=== PATIENT | male | born 1975 | race Caucasian/White ===

== ENCOUNTER 2017-01-03 12:01 | Emergency (ER) | payer BC, OTHER ==
[~2017-01-03] VITALS: Ht 193 cm; Wt 123.8 kg
--- OUTSIDE RECORDS SUMMARY | 2017-01-03 12:07 | XMS REPORT ---
Author Author HERNAN STUBBS Organization [facility] Address [address] [place] [address] Care Team Providers Care Book Coverer Name Role Phone HERNAN STUBBS Unavailable PROBLEMS Type Condition ICD9-CM Code [id number] Code Onset Dates Condition Status SNOMED Code Problem Acute midline low back pain with left-sided sciatica M54.42 Active 917740180 Problem Myalgia M79.1 Active 88129640 Problem Elevated CK R74.8 Active 001743638 Problem Polydipsia R63.1 Active 71751498 Problem Family history of diabetes mellitus Z83.3 Active 577362587 ALLERGIES Substance Reaction Event Type Date Status Garlic Unknown Non Drug Allergy June, Active SOCIAL HISTORY Never Assessed PLAN OF CARE Activity Details Follow Up prn Reason: VITAL SIGNS Height 76 in 2016-07-07 Weight 224.2 lbs 2016-07-07 Temperature 97.4 degrees Fahrenheit 2016-07-07 Heart Rate 88 bpm 2016-07-07 Respiratory Rate 22 2016-07-07 BMI 27.29 kg/m2 2016-07-07 Blood pressure systolic 140 mmHg 2016-07-07 Blood pressure diastolic 90 mmHg 2016-07-07 MEDICATIONS Medication Instructions Dosage Frequency Start Date End Date Duration Status Tramadol HCl 50 MG Orally every 6 hrs 1 tablet as needed 6h June, June, 5 days Active Cyclobenzaprine HCl 10 MG Orally Three times a day 1 tablet as needed 8h June, June, 7 days Active PredniSONE 20 MG Orally 3 tablets x 3 days, followed by 2 tablets x 3 days, followed by 1 tablet x 3 days. as directed June, June, 9 days Active Ibuprofen 200 MG Orally every 6 hrs 1 tablet as needed 6h Active RESULTS No Results PROCEDURES No Known procedures IMMUNIZATIONS No Known Immunizations MEDICAL (GENERAL) HISTORY Type Description Date Medical History bipolar disorder Medical History PTSD
--- OUTSIDE RECORDS SUMMARY | 2017-01-03 12:07 | XMS REPORT ---
Author Author STEPH GARCIA Organization [employer] Address Unknown Phone Unavailable Care Team Providers Care Transportation Security Officer Name Role Phone STEPH GARCIA CP Unavailable Allergies No Known Allergies Problems Problem Type Condition Code Onset Dates Condition Status Problem Family history of diabetes mellitus Z83.3 Active Problem Myalgia M79.1 Active Problem Polydipsia R63.1 Active Assessment Elevated CK R74.8 Active Problem Elevated CK R74.8 Active Assessment Myalgia M79.1 Active Medications No Known Medications Results No Known Results Summary Purpose [employer] Submission
--- NOTE | 2017-01-03 12:18 | ED Cough/URI ---
General Chief Complaint: Cough/Cold/Flu Symptoms Stated Complaint: CONGESTION,COUGH,N/V Source: patient Exam Limitations: no limitations History of Present Illness Time seen by provider: 12:16 Initial Comments To ER with a six-day history of productive cough of greenish yellow and occasionally blood-tinged sputum, posttussive emesis, fever up to 102, sore throat, rhinorrhea. Timing/Duration: week Severity/Quality: productive cough Associated Symptoms: cough, fever/chills, sinus infection Constitutional: see HPI, chills, fever EENTM: see HPI, nose congestion, throat pain Respiratory: see HPI, cough Cardiovascular: no symptoms reported Gastrointestinal: No abdominal pain, No diarrhea, vomiting Genitourinary: no symptoms reported Musculoskeletal: no symptoms reported Skin: no symptoms reported Psychiatric/Neurological: No Symptoms Reported Hematologic/Lymphatic: No Symptoms Reported Past Ombjlzs-Jazkyl-Qrsguo Hx Patient Social History Recent Foreign Travel: No Contact w/Someone Who Travel: No Physical Exam Vital Signs Vital Sign - Last 12Hours 01/03/17 12:16 Temp 98.6 Pulse 102 Resp 16 B/P (MAP) 136/96 Pulse Ox 94 Capillary Refill : General Appearance: WD/WN, no apparent distress Eyes: Bilateral Eye Normal Inspection, Bilateral Eye PERRL, Bilateral Eye EOMI HEENT: PERRL/EOMI, normal ENT inspection, TMs normal, pharyngeal erythema Neck: non-tender, full range of motion Respiratory: normal breath sounds, no respiratory distress, no accessory muscle use Cardiovascular: regular rate, rhythm, no murmur Gastrointestinal: normal bowel sounds, non tender, soft Extremities: normal range of motion, non-tender Neurologic/Psychiatric: alert, normal mood/affect, oriented x 3 Skin: normal color, warm/dry Progress/Results/Core Measures Suspected Sepsis SIRS Temperature: Pulse: Respiratory Rate: Blood Pressure / Mean: Results/Orders Micro Results Microbiology 01/03/17 Influenza Types A,B Antigen (KAYLEE) - Final, Complete My Orders Orders - DEBBIE KIM APRN Influenza A And B Antigens (01/03/17 12:16) Chest Pa/Lat (2 View) (01/03/17 12:16) Vital Signs/I&O Vital Sign - Last 12Hours 01/03/17 12:16 Temp 98.6 Pulse 102 Resp 16 B/P (MAP) 136/96 Pulse Ox 94 Capillary Refill : Departure Impression Impression: Primary Impression: Bronchitis Disposition: 01 HOME, SELF-CARE Condition: Stable Departure-Patient Inst. Decision time for Depature: 12:50 Referrals: NO,LOCAL PHYSICIAN (PCP/Family) Primary Care Physician Patient Instructions: Acute Bronchitis, Adult (DC) Add. Discharge Instructions: 1. Return to ER for any concerns 2. Follow-up with your doctor next week 3. All discharge instructions reviewed with patient and/or family. Voiced understanding. Scripts Promethazine HCl/Codeine (Prometh-Codein 6.25-10 mg/5 ml) 5 Ml Syrup 5-10 ML PO Q6H Y for COUGH, #120 ML Prov: DEBBIE KIM APRN 01/03/17 Azithromycin (Azithromycin) 250 Mg Tablet 250 MG PO UD, #6 TAB TAKE 2 TABLETS ON DAY ONE THEN TAKE 1 TABLET DAILY FOR FOUR MORE DAYS Prov: DEBBIE KIM APRN 01/03/17 Prednisone (Prednisone) 20 Mg Tab 40 MG PO DAILY, #6 TAB Prov: DEBBIE KIM APRN 01/03/17 Work/School Note: Work Release Form Date Seen in the Emergency Department: Jan 03, 2017 Return to Work: Jan 05, 2017 DEBBIE KIM APRN Jan 03, 2017 12:17
[2017-01-03] MEDS ORDERED: PRD20T PO (12:51)
[2017-01-03] MEDS ORDERED: AZIT250T12 PO (12:51)
[2017-01-03] MEDS ORDERED: PROM5SYR PO (12:51)
--- NOTE | 2017-01-03 12:52 | Diagnostic Imaging Report ---
PA and lateral views of the chest Indication: Cough Findings: The lungs are clear. The heart size is normal. There is no effusion or pneumothorax The mediastinum and shasha appear unremarkable. Impression: Unremarkable study. Dictated by: Dictated on workstation # [id number]
[2017-01-03 12:53] VITALS: BP 136/96
== END 2017-01-03 12:53 | disposition home or self-care (01) ==
LOC: ER 12:03
DX: J40 Bronchitis, not specified as acute or chronic (principal)
CPT/HCPCS: 71020; 87804; 99282

== ENCOUNTER → 2017-01-21 | Outpatient (CLI) | payer BC ==
[~2017-01-21] MED LIST: AZIT250T12 PO; PRD20T PO; PROM5SYR PO
--- NOTE | 2017-01-21 20:08 | Diagnostic Imaging Report ---
EXAMINATION: Three views of the thoracic spine. INDICATION: Back pain. FINDINGS: There is satisfactory alignment of the posterior spinal line. The vertebral body heights are preserved. Disc heights are also preserved. The paraspinal soft tissues appear unremarkable. IMPRESSION: Unremarkable exam. Dictated by: Dictated on workstation # [id number]
--- NOTE | 2017-01-21 20:18 | Diagnostic Imaging Report ---
EXAMINATION: Three views of the lumbar spine. INDICATION: Back pain. FINDINGS: There is satisfactory alignment of the lumbar spine. The vertebral body heights are preserved. Disc heights are also preserved. Minimal anterior osteophytes at the L4/5 level is seen. There is a transitional lumbosacral junction with partially lumbarized right transverse process of S1. The SI joints appear unremarkable. IMPRESSION: Minimal degenerative changes. Dictated by: Dictated on workstation # [id number]
== END ==
LOC: RAD 15:49
PROVIDERS: ATTEND Nurse Practitioner Family
DX: M54.9 Dorsalgia, unspecified (principal)
CPT/HCPCS: 72072; 72100

== ENCOUNTER 2017-05-07 02:34 | Emergency (ER) | payer SELFPAY ==
[~2017-05-07] VITALS: Ht 190.5 cm; Wt 129.3 kg
--- OUTSIDE RECORDS SUMMARY | 2017-05-07 02:45 | XMS REPORT ---
Author Author HERNAN STUBBS Organization [facility] Address [address] [place] [address] Care Team Providers Care Silver Brazer Name Role Phone HERNAN STUBBS Unavailable PROBLEMS Type Condition ICD9-CM Code RDQ88-IQ Code Onset Dates Condition Status SNOMED Code Problem Acute midline low back pain with left-sided sciatica M54.42 Active 747783795 Problem Myalgia M79.1 Active 67546443 Problem Elevated CK R74.8 Active 683856498 Problem Polydipsia R63.1 Active 15427941 Problem Family history of diabetes mellitus Z83.3 Active 146524150 ALLERGIES Substance Reaction Event Type Date Status Garlic Unknown Non Drug Allergy Jul, Active SOCIAL HISTORY Never Assessed PLAN OF CARE Activity Details Follow Up prn Reason: VITAL SIGNS Height 76 in 2016-07-20 Weight 213.8 lbs 2016-07-20 Temperature 98.4 degrees Fahrenheit 2016-07-20 Heart Rate 90 bpm 2016-07-20 Respiratory Rate 20 2016-07-20 BMI 26.02 kg/m2 2016-07-20 Blood pressure systolic 128 mmHg 2016-07-20 Blood pressure diastolic 78 mmHg 2016-07-20 MEDICATIONS Medication Instructions Dosage Frequency Start Date End Date Duration Status Ibuprofen 200 MG Orally every 6 hrs 1 tablet as needed 6h Active Amoxicillin 500 MG Orally every 8 hrs 1 capsule 8h Jul, Jul, 7 days Active RESULTS No Results PROCEDURES No Known procedures IMMUNIZATIONS No Known Immunizations MEDICAL (GENERAL) HISTORY Type Description Date Medical History bipolar disorder Medical History PTSD
[2017-05-07] MEDS ORDERED: FLUT9.9S NS (04:49)
[2017-05-07] MEDS ORDERED: AMOX-358 PO (04:49)
[2017-05-07] MEDS ORDERED: D-ME118S7 PO (04:49)
[2017-05-07] MEDS ORDERED: LORA1TAB59 PO (04:49)
[2017-05-07] MEDS ORDERED: BENZ-13 PO (04:49)
[2017-05-07] MEDS ORDERED: METH4TAB PO (04:49)
--- NOTE | 2017-05-07 04:49 | ED Cough/URI ---
General Chief Complaint: Cough/Cold/Flu Symptoms Stated Complaint: COUGH,RUNNY NOSE,POSS FEVER Nursing Triage Note: REPORTING COUGH AND COLD X 7 DAYS. HAS REPORTED THIS OCCURING NEARLY EVERY MONTH. PRODUCTIVE COUGH FROM CLEAR TO GREENISH DRAINAGE Source: patient History of Present Illness Date Seen by Provider: May 07, 2017 Time Seen by Provider: 04:10 Initial Comments PT C/O PRODUCTIVE COUGH X 7 DAYS SPUTUM WAS CLEAR AND NOW IS GREEN C/O CHEST PAIN, HEADACHE, VOMITING AND SORE THROAT ALL DUE TO COUGHING NO SHORTNESS OF BREATH ONLY TIME HE CHECKED HIS TEMP WAS 2 DAYS AGO AND WAS 103.2. HAS NO IDEA IF HE HAS FELT LIKE HE HAS HAD FEVER SINCE THEN PT STATES HE HAS NOT HAD ANYTHING EXCEPT LIQUIDS FOR THE LAST 4 DAYS BECAUSE HIS THROAT WAS TOO SORE VOIDING NORMAL AMOUNTS STATES " I GET THIS EVERY MONTH" PT STATES HE HAS CONTINUED TO WORK EVERY DAY DURING THIS ILLNESS STATES SYMPTOMS ARE NO DIFFERENT TODAY STATES HE HAS NOT SOUGHT CARE AT ANY TIME FOR THIS PROBLEM,BUT PT WAS HERE 2016 FOR SIMILAR COMPLAINTS NO RELIEF WITH OTC ROBITUSSIN PT SMOKES 1/2 PPD PCP: DR. LAGUERRE/ [facility] Allergies and Home Medications Allergies Coded Allergies: No Known Drug Allergies (Unverified , 01/03/17) Home Medications Amoxicillin/Potassium Clav 1 Each Tablet, 1 EACH PO BID Prescribed by: WILLIAM CAMERON on 05/07/17448 Benzonatate 100 Mg Capsule, 1-2 TAB PO TID Prescribed by: WILLIAM CAMERON on 05/07/17448 D-Methorphan Hb/Prometh HCl 118 Ml Syrup, 1-2 TSP PO Q4H Prescribed by: WILLIAM CAMERON on 05/07/17448 Fluticasone Propionate 9.9 Ml [place].susp, 2 SPRAYS NS BID Prescribed by: WILLIAM CAMERON on 05/07/17448 Loratadine/Pseudoephedrine 1 Each Tab.er.12h, 1 EACH PO BID Prescribed by: WILLIAM CAMERON on 05/07/17448 Methylprednisolone 4 Mg Tab.ds.pk, 4 MG PO UD Prescribed by: WILLIAM CAMERON on 05/07/17448 Patient Home Medication List Home Medication List Reviewed: Yes Constitutional: see HPI, fever EENTM: see HPI, nose congestion, throat pain Respiratory: see HPI, cough, phlegm, No short of breath, No wheezing Cardiovascular: see HPI Gastrointestinal: see HPI Genitourinary: no symptoms reported Musculoskeletal: no symptoms reported Skin: no symptoms reported Psychiatric/Neurological: See HPI Hematologic/Lymphatic: No Symptoms Reported Immunological/Allergic: no symptoms reported Past Zdaurqe-Lhuvbx-Fvtfel Hx Patient Social History Alcohol Use: Denies Use Recreational Drug Use: No Smoking Status: Current Everyday Smoker (1/2 PPD) Type Used: Cigarettes 2nd Hand Smoke Exposure: Yes Recent Foreign Travel: No Contact w/Someone Who Travel: No Recent Infectious Disease Expo: No Recent Hopitalizations: No Seasonal Allergies Seasonal Allergies: No Surgeries History of Surgeries: No Respiratory History of Respiratory Disorde: Yes (ASTHMA CHILD, "HAD LUNGS DRAINED WHEN YOUNG") Respiratory Disorders: Asthma, Chronic Bronchitis Cardiovascular History of Cardiac Disorders: No Neurological History of Neurological Disord: No Genitourinary History of Genitourinary Disor: No Gastrointestinal History of Gastrointestinal Di: No Musculoskeletal History of Musculoskeletal Dis: No Endocrine History of Endocrine Disorders: No HEENT History of HEENT Disorders: No Cancer History of Cancer: No Psychosocial History of Psychiatric Problem: No Integumentary History of Skin or Integumenta: No Blood Transfusions History of Blood Disorders: No Physical Exam Vital Signs Vital Signs - First Documented 05/07/17 04:05 Temp 97.7 Pulse 91 Resp 20 B/P (MAP) 133/83 (100) Pulse Ox 97 O2 Delivery Room Air Capillary Refill : Less Than 3 Seconds General Appearance: WD/WN, no apparent distress, other (STRONG ODOR OF CIGARETTES) HEENT: PERRL/EOMI, TMs normal, pharynx normal, other (NASAL MUCOSAL EDEMA AND MODERATE AMOUNT OF CLEAR NASAL DRAINAGE. DIFFUSE SINUS TENDERNESS) Neck: non-tender, full range of motion, supple, normal inspection, No lymphadenopathy (R), No lymphadenopathy (L) Respiratory: chest non-tender, normal breath sounds, no respiratory distress, no accessory muscle use Cardiovascular: regular rate, rhythm, no edema, no JVD, no murmur Gastrointestinal: normal bowel sounds, non tender, soft Extremities: normal inspection, no pedal edema, normal capillary refill Neurologic/Psychiatric: clothing consultant II-XII nml as tested, no motor/sensory deficits, alert, normal mood/affect, oriented x 3 Skin: normal color, warm/dry, tattoos/piercings (TATTOOS) Progress/Results/Core Measures Suspected Sepsis Recent Fever Within 48 Hours: No Infection Criteria Present: None New/Unexplained Altered Menta: No Sepsis Screen: No Definite Risk Sepsis Diagnosis: SIRS Temperature:97.7 Pulse: 91 Respiratory Rate: 20 Blood Pressure 133 /83 Mean: 100 Results/Orders Micro Results Microbiology 05/07/17 Influenza Types A,B Antigen (KAYLEE) - Final, Complete My Orders Orders - RAKESHWILLIAM K DO Chest Pa/Lat (2 View) (05/07/17 ) Influenza A And B Antigens (05/07/17 04:10) Vital Signs/I&O Vital Sign - Last 12Hours 05/07/17 05/07/17 04:05 05:00 Temp 97.7 97.7 Pulse 91 91 Resp 20 20 B/P (MAP) 133/83 (100) 133/83 (100) Pulse Ox 97 97 O2 Delivery Room Air Capillary Refill : Less Than 3 Seconds Blood Pressure Mean: 100 Diagnostic Imaging Comments CXR--NO ACUTE PROCESS, PENDING RADIOLOGIST REVIEW Reviewed: Reviewed by Me Departure Impression Impression: Primary Impression: Bronchitis Additional Impression: Sinusitis Disposition: 01 HOME, SELF-CARE Condition: Stable Departure-Patient Inst. Referrals: MARLENE LAGUERRE MD (PCP/Family) Primary Care Physician Patient Instructions: Acute Bronchitis, Adult (DC), Sinusitis, Adult (DC) Add. Discharge Instructions: TYLENOL AND MOTRIN NEEDED FOR PAIN OR FEVER LOTS OF CLEAR LIQUIDS FOLLOW UP WITH DR. LAGUERRE IN 3-4 DAYS IF NO BETTER All discharge instructions reviewed with patient and/or family. Voiced understanding. Scripts Benzonatate (Tessalon Perle) 100 Mg Capsule 1-2 TAB PO TID for Cough, #30 CAP Prov: RAKESH,WILLIAM K DO 05/07/17 D-Methorphan Hb/Prometh HCl (Promethazine-Dm Syrup) 118 Ml Syrup 1-2 TSP PO Q4H for Cough, #120 ML Prov: RAKESH,WILLIAM K DO 05/07/17 Loratadine/Pseudoephedrine (Claritin-D 12 Hour Tablet) 1 Each Tab.er.12h 1 EACH PO BID, #20 TAB Prov: RAKESH,WILLIAM K DO 05/07/17 Methylprednisolone (Medrol) 4 Mg Tab.ds.pk 4 MG PO UD, #1 PKG Prov: RAKESH,WILLIAM K DO 05/07/17 Fluticasone Propionate (Flonase Allergy Relief) 9.9 Ml [place].susp 2 SPRAYS NS BID, #1 SPRAY Prov: WILLIAM CAMERON DO 05/07/17 Amoxicillin/Potassium Clav (Augmentin 875-125 Tablet) 1 Each Tablet 1 EACH PO BID for INFECTION, #20 TAB Prov: WILLIAM CAMERON DO 05/07/17 WILLIAM CAMERON DO May 07, 2017 04:49
[2017-05-07 05:00] VITALS: BP 133/83
--- NOTE | 2017-05-07 06:32 | Diagnostic Imaging Report ---
INDICATION: Cough and congestion. PA and lateral chest. FINDINGS: Heart and mediastinum are normal. Lungs are clear. There are no effusions or pneumothoraces. IMPRESSION: Negative chest. Dictated by: Dictated on workstation # [id number]
== END 2017-05-07 04:59 | disposition home or self-care (01) ==
LOC: EDUNIT# 02:34 → ER 02:41
DX: J40 Bronchitis, not specified as acute or chronic (principal); J32.9 Chronic sinusitis, unspecified; J45.909 Unspecified asthma, uncomplicated; F17.210 Nicotine dependence, cigarettes, uncomplicated; Z79.52 Long term (current) use of systemic steroids
CPT/HCPCS: 71046; 87804

== ENCOUNTER 2017-06-08 07:19 | Emergency (ER) | payer SELFPAY ==
[~2017-06-08] VITALS: Ht 190.5 cm; Wt 121.1 kg
[~2017-06-08 07:19] MED LIST changes: +AMOX-358 PO; +BENZ-13 PO; +D-ME118S7 PO; +FLUT9.9S NS; +LORA1TAB59 PO; +METH4TAB PO
[2017-06-08] MEDS ORDERED: ORPHENADRINE 60 MG/2 ML (NORFLEX) AMP IM STA (07:41)
[2017-06-08] MEDS ORDERED: KETOROLAC 60 MG/2 ML VIAL IM STA (07:41)
[2017-06-08] MEDS ORDERED: HYDROcodone/APAP 7.5 MG/325 MG (LORTAB, LORCET PLUS) TABLET PO STA (07:41)
[2017-06-08] MEDS ORDERED: predniSONE 20 MG TAB PO ONE (07:45)
--- NOTE | 2017-06-08 07:47 | ED Back Pain ---
General Chief Complaint: Back Problems Stated Complaint: BACK PAIN Source of Information: Patient Exam Limitations: No Limitations History of Present Illness Date Seen by Provider: Jun 08, 2017 Time Seen by Provider: 07:27 Initial Comments Here with low back pain that started on the right side 2 weeks ago when he was lifting at work and has progressively worsened until today. Has history of previous back pain advance usually related to lifting. He is a heavy yard laborer. Pain started on the right side and radiated to the buttock. Now radiates to the left side both front and back. Will occasionally gets spasms. He has tried ibuprofen and Tylenol as well as muscle ointments and creams. Did have some imaging of his back in January which did not show significant disease but did have some degeneration per his report and records review. Denies bowel or bladder incontinence or numbness between his legs. He is able to walk. Pain is worse when transitioning between lying and sitting or laying and standing. Timing/Duration: Getting Worse, Other (2 weeks) Severity: Moderate Pain/Injury Location: Back Radiation: Buttocks, Upper Legs Method of Injury: Other (lifting) Modifying Factors: Improves With Immobilization; Worse With Movement; Improves With Rest Associated Symptoms: muscle spasms; No fever, No weakness, No numbness in legs/ feet, No tingling in legs/feet, No sensory/motor loss; lower back pain; No loss of bladder control, No loss of bowel control Allergies and Home Medications Allergies Coded Allergies: No Known Drug Allergies (Unverified , 01/03/17) Home Medications Amoxicillin/Potassium Clav 1 Each Tablet, 1 EACH PO BID Prescribed by: WILLIAM CAMERON on 05/07/17448 Benzonatate 100 Mg Capsule, 1-2 TAB PO TID Prescribed by: WILLIAM CAMERON on 05/07/17448 D-Methorphan Hb/Prometh HCl 118 Ml Syrup, 1-2 TSP PO Q4H Prescribed by: WILLIAM CAMERON on 05/07/17448 Fluticasone Propionate 9.9 Ml [place].susp, 2 SPRAYS NS BID Prescribed by: WILLIAM CAMERON on 05/07/17448 Loratadine/Pseudoephedrine 1 Each Tab.er.12h, 1 EACH PO BID Prescribed by: WILLIAM CAMERON on 05/07/17448 Methylprednisolone 4 Mg Tab.ds.pk, 4 MG PO UD Prescribed by: WILLIAM CAMERON on 05/07/17 0449 Patient Home Medication List Home Medication List Reviewed: Yes Constitutional: see HPI; No chills, No fever EENTM: no symptoms reported Respiratory: no symptoms reported Cardiovascular: no symptoms reported Gastrointestinal: No nausea, No vomiting Genitourinary: no symptoms reported Musculoskeletal: see HPI, back pain, joint pain, muscle pain, muscle stiffness ; No muscle weakness Skin: no symptoms reported Psychiatric/Neurological: See HPI; Denies Paresthesia, Denies Weakness Past Ahegblw-Auytac-Qzdcop Hx Patient Social History Alcohol Use: Denies Use Recreational Drug Use: No Smoking Status: Current Everyday Smoker Type Used: Cigarettes 2nd Hand Smoke Exposure: Yes Recent Foreign Travel: No Contact w/Someone Who Travel: No Recent Hopitalizations: No Seasonal Allergies Seasonal Allergies: No Past Medical History Surgeries: No Respiratory: Yes (ASTHMA CHILD, "HAD LUNGS DRAINED WHEN YOUNG") Asthma, Chronic Bronchitis Cardiac: Yes Hypertension Neurological: No Genitourinary: No Gastrointestinal: No Musculoskeletal: No Endocrine: No HEENT: No Cancer: No Psychosocial: No Integumentary: No Blood Disorders: No Family Medical History Reviewed Nursing Family Hx Hypertension Physical Exam Vital Signs Capillary Refill : General Appearance: WD/WN, Mild Distress Neck: Full Range of Motion, Normal Inspection, Non Tender, Supple Cardiovascular: Regular Rate, Rhythm, No Murmur Respiratory: Lungs Clear, Normal Breath Sounds Gastrointestinal: Non Tender, Soft Back: No Vertebral Tenderness, Muscle Spasm, Other (tender to both SI joints but right is much greater than left. Muscle spasm noted along the paraspinous muscles on the right anterior lesser extent on the left. Pain worse with straight leg raise on right. Strength equal bilateral lower extremities. Able to walk and stand has some pain.) Extremity: Normal Inspection, Normal Range of Motion, Non Tender, No Calf Tenderness Neurologic/Psychiatric: Alert, Oriented x3; No Motor Weakness, No Sensory Deficit; Other (retains sensation between the legs.) Skin: Normal Color, Warm/Dry Progress/Results/Core Measures Progress Note : Progress Note Seen and evaluated. Prednisone 40 mg by mouth, Toradol 60 mg IM, Norflex 60 mg IM and hydrocodone 7.5/325 mg by mouth given. We will hold imaging at this point but will consider if there is need for return visit. Patient agrees with this plan. Discharged home with return precautions. Patient verbalize understanding instructions and agreement with plan. Departure Impression Primary Impression: Lumbar radiculopathy Disposition: 01 HOME, SELF-CARE Condition: Stable Departure-Patient Inst. Decision time for Depature: 07:49 Referrals: MARLENE LAGUERRE MD (PCP/Family) Primary Care Physician Patient Instructions: Radiculopathy (DC), Low Back Pain (DC) Add. Discharge Instructions: All discharge instructions reviewed with patient and/or family. Voiced understanding. Take medications as directed. You may also take Tylenol/acetaminophen 1000 mg every 6-8 hours as needed for pain. You may use giip-vhc-mcmbker preparations such as icy hot with lidocaine or Aspercreme with lidocaine either in the patch or cream version per package directions. Use ice or heat as needed to reduce pain. Follow-up with your DrJimi in a few days for recheck. Return for worse pain , fever, weakness, numbness between your legs, difficulty with going to the bathroom or walking or other concerns as needed. Scripts Prednisone (Prednisone) 20 Mg Tab 40 MG PO DAILY, #12 TAB 0 Refills Prov: BATSHEVA SALAMANCA MD 06/08/17 Naproxen (Naprosyn) 500 Mg Tablet 500 MG PO BID PRN for PAIN-MILD TO MODERATE, #30 TAB 0 Refills Prov: BATSHEVA SALAMANCA MD 06/08/17 Cyclobenzaprine HCl (Cyclobenzaprine HCl) 10 Mg Tablet 10 MG PO Q8H PRN for SPASMS, #15 TAB 0 Refills Prov: BATSHEVA SALAMANCA MD 06/08/17 BATSHEVA SALAMANCA MD Jun 08, 2017 07:47
[2017-06-08] MEDS ORDERED: CYCL10TA9 PO (07:49)
[2017-06-08] MEDS ORDERED: PRD20T PO (07:49)
[2017-06-08] MEDS ORDERED: NAPR-1071 PO (07:49)
[2017-06-08 08:18] VITALS: BP 110/70
== END 2017-06-08 08:18 | disposition home or self-care (01) ==
LOC: EDUNIT# 07:19 → ER 07:21
DX: M54.16 Radiculopathy, lumbar region (principal); J44.9 Chronic obstructive pulmonary disease, unspecified; I10 Essential (primary) hypertension; Z77.22 Contact with and (suspected) exposure to environmental tobacco smoke (acute) (chronic); Z79.51 Long term (current) use of inhaled steroids; X50.0XXA Overexertion from strenuous movement or load, initial encounter; Y99.0 Civilian activity done for income or pay; Y92.89 Other specified places as the place of occurrence of the external cause
CPT/HCPCS: 96372; 99284